=== PATIENT | female | born 1940 | race Caucasian/White ===

== ENCOUNTER → 2018-02-06 07:03 | Outpatient (CLI) | payer OTHER, SELFPAY ==
[2018-02-06 07:07] LABS: Bacteria Urine None Seen; WBC Urine None Seen (0-5/HPF)
[2018-02-06 09:02] LABS: Add Manual Diff / Slide Review NO; Basophils Percent Auto 2.3 % (0-2); Eosinophils Percent Auto 4.9 % (2-4); Hematocrit 42.9 % (36-46); Hemoglobin 14.6 g/dL (12.0-16.0); Mean Corpuscular HGB Conc 33.9 % (30-36); Mean Corpuscular Hemoglobin 31.6 PG (26-34); Mean Corpuscular Volume 93.3 fL (80-100); Monocytes Percent Auto 10.2 % (3-14); Neutrophils Absolute Auto 2000 /uL (3000-5900); Neutrophils Percent Auto 42.6 % (50-75); Platelet Count 318 X10^3/uL (150-400); Red Cell Distribution Width 13.3 % (11.6-14.8); White Blood Cell Count 4.7 X10^3/uL (4.5-11.0)
[2018-02-06 09:15] LABS: Appearance Urine UA CLEAR; Bilirubin Urine UA NEGATIVE (NEGATIVE); Color Urine UA YELLOW; Glucose Urine UA NEGATIVE (Normal); Ketones Urine UA NEGATIVE (NEGATIVE); Leukocyte Esterase Urine UA NEGATIVE (NEGATIVE); Nitrite Urine UA Negative (Negative); Occult Blood Urine UA TRACE-INTACT (Negative); Protein Urine UA NEGATIVE (Negative); Urobilinogen Urine UA 0.2 E.U./dL (0.2); pH Urine UA 6.5 (4.5-8.0)
[2018-02-06 09:29] LABS: Culture Indicated Urine Cult Not Indicated; RBC Urine 1-5/HPF (0-5/HPF)
[2018-02-06 10:06] LABS: Alanine Aminotransferase 24 IU/L (9-52); Albumin 4.6 g/dL (3.5-5.0); Albumin Globulin Ratio 1.5 (1.0-2.8); Alkaline Phosphatase 76 U/L (38-126); Aspartate Aminotransferase 42 IU/L (14-36); Blood Urea Nitrogen 28 mg/dL (7-17); Calcium 9.7 mg/dL (8.4-10.2); Carbon Dioxide 28 mmol/L (22-32); Chloride 104 mmol/L (98-107); Cholesterol 175 mg/dL (140-199); Estimated Glomerular Filt Rate 53.9 mL/min (>60); Glucose 70 mg/dL (80-110); HDL Cholesterol 77 mg/dL (40-60); HEMOLYSIS < 15 (0-50); LDL Cholesterol Calculated 84 mg/dL (<100); Potassium 4.3 mmol/L (3.4-5.1); Sodium 143 mmol/L (137-145); Total Protein 7.6 g/dL (6.3-8.2); Triglycerides 70 mg/dL (35-150)
[2018-02-06 10:17] LABS: Thyroid Stimulating Hormone 2.28 uIU/mL (0.47-4.68)
== END ==
PROVIDERS: Visit Provider Family Medicine
DX: I10 Essential (primary) hypertension (principal); Z13.9 Encounter for screening, unspecified; Z51.81 Encounter for therapeutic drug level monitoring
CPT/HCPCS: 36415; 80053; 80061; 81001; 84443; 85025

== ENCOUNTER → 2018-02-18 13:00 | Outpatient (CLI) | payer OTHER, SELFPAY | DX: Z23 Encounter for immunization (principal) | CPT/HCPCS: 90471; 90662 ==

== ENCOUNTER → 2018-06-17 13:42 | Outpatient (CLI) | payer OTHER, SELFPAY ==
--- NOTE | 2018-06-17 12:15 | DI.MG.S_ITS ---
Patient Name: ANGEL HARMON date: 1940 Sex: F Attending Physician: Maria T Indications: Date: 06/17/2018 13:45 At the request of: BERTA SHAW Procedure: MM screening mammo BI BILATERAL DIGITAL SCREENING MAMMOGRAM 3D/2D WITH CAD: 06/17/2018 CLINICAL: Routine screening. Comparison is made to exams dated: 05/18/2015 mammogram, 02/25/2013 mammogram, and 01/03/2012 mammogram - [facility]. There are scattered fibroglandular elements in both breasts. Current study was also evaluated with a Computer Aided Detection (CAD) system. No significant masses, calcifications, or other findings are seen in either breast. There has been no significant interval change. IMPRESSION: NEGATIVE There is no mammographic evidence of malignancy. A 1 year screening mammogram is recommended. This exam was interpreted at Station ID: [id number]. NOTE: For mammograms, a report in lay terms will be sent to the patient. Approximately 15% of breast malignancies will not be visualized mammographically. In the management of a palpable breast mass, a negative mammogram must not discourage biopsy of a clinically suspicious lesion. Electronically Signed By: Shakir mejía/fab:06/17/2018 21:59:35 letter sent: Normal Exam ACR BI-RADS Category 1: Negative [id number]
== END ==
PROVIDERS: PCP Family Medicine; Visit Provider Family Medicine
DX: Z12.31 Encounter for screening mammogram for malignant neoplasm of breast (principal)
CPT/HCPCS: 77063; 77067

== ENCOUNTER → 2018-08-17 09:58 | Outpatient (CLI) | payer OTHER, SELFPAY | PROVIDERS: PCP Family Medicine; Visit Provider Physician Assistant | DX: R30.0 Dysuria (principal) | CPT/HCPCS: 87086 ==

== ENCOUNTER → 2018-10-25 08:41 | Outpatient (CLI) | payer OTHER, SELFPAY | PROVIDERS: PCP Family Medicine; Visit Provider Physician Assistant | DX: R31.9 Hematuria, unspecified (principal) | CPT/HCPCS: 87086; 87186 ==

== ENCOUNTER → 2019-03-24 12:35 | Outpatient (CLI) | payer OTHER, SELFPAY | PROVIDERS: PCP Family Medicine | DX: Z23 Encounter for immunization (principal) | CPT/HCPCS: 90471; 90662 ==

== ENCOUNTER → 2019-04-21 08:55 | Outpatient (CLI) | payer OTHER, SELFPAY ==
[2019-04-21 09:36] LABS: Add Manual Diff / Slide Review NO; Basophils Absolute Auto 100 /uL (0-100); Basophils Percent Auto 1.4 % (0-2); Eosinophils Absolute Auto 200 /uL (0-450); Eosinophils Percent Auto 4.7 % (2-4); Hematocrit 42.4 % (36-46); Hemoglobin 14.5 g/dL (12.0-16.0); Lymphocytes Absolute Auto 1700 /uL (1100-4500); Lymphocytes Percent Auto 31.9 % (25-40); Mean Corpuscular HGB Conc 34.2 % (30-36); Mean Corpuscular Hemoglobin 31.4 PG (26-34); Mean Corpuscular Volume 91.6 fL (80-100); Monocytes Absolute Auto 500 /uL (0-900); Monocytes Percent Auto 10.2 % (3-14); Neutrophils Absolute Auto 2700 /uL (1500-7000); Neutrophils Percent Auto 51.8 % (50-75); Platelet Count 318 X10^3/uL (150-400); Red Blood Cell Count 4.63 X10^6/uL (4.0-5.2); Red Cell Distribution Width 13.4 % (11.6-14.8); White Blood Cell Count 5.2 X10^3/uL (4.5-11.0)
[2019-04-21 09:53] LABS: Alanine Aminotransferase 17 IU/L (<35); Albumin 4.6 g/dL (3.5-5.0); Albumin Globulin Ratio 1.6 (1.0-2.8); Alkaline Phosphatase 88 U/L (38-126); Aspartate Aminotransferase 33 IU/L (14-36); BUN Creatinine Ratio 17.5 (6-22); Bilirubin Total 0.8 mg/dL (0.2-1.3); Blood Urea Nitrogen 21 mg/dL (7-17); Calcium 9.6 mg/dL (8.4-10.2); Carbon Dioxide 30 mmol/L (22-32); Chloride 100 mmol/L (98-107); Cholesterol 203 mg/dL (140-199); Estimated Glomerular Filt Rate 43.6 mL/min (>60); Globulin 2.8 g/dL (1.7-4.1); Glucose 97 mg/dL (80-110); HDL Cholesterol 68 mg/dL (40-60); HEMOLYSIS < 15 (0-50); LDL Cholesterol Calculated 114 mg/dL (<100); Potassium 4.1 mmol/L (3.4-5.1); Sodium 138 mmol/L (137-145); Total Protein 7.4 g/dL (6.3-8.2); Triglycerides 107 mg/dL (35-150)
[2019-04-21 10:33] LABS: Thyroid Stimulating Hormone 3.54 uIU/mL (0.47-4.68)
== END ==
PROVIDERS: PCP Family Medicine; Visit Provider Family Medicine
DX: Z51.81 Encounter for therapeutic drug level monitoring (principal); I10 Essential (primary) hypertension; M19.90 Unspecified osteoarthritis, unspecified site
CPT/HCPCS: 36415; 80053; 80061; 84443; 85025

== ENCOUNTER → 2019-08-18 13:25 | Outpatient (CLI) | payer OTHER, SELFPAY | PROVIDERS: PCP Student in an Organized Health Care Education/Training Program; Referring Provider Student in an Organized Health Care Education/Training Program; Visit Provider Student in an Organized Health Care Education/Training Program | DX: M81.0 Age-related osteoporosis without current pathological fracture (principal); Z78.0 Asymptomatic menopausal state; Z91.89 Other specified personal risk factors, not elsewhere classified; Z90.722 Acquired absence of ovaries, bilateral; Z82.62 Family history of osteoporosis | CPT/HCPCS: 77080 ==

== ENCOUNTER → 2020-08-03 14:56 | Outpatient (CLI) | payer OTHER, SELFPAY ==
[2020-08-03 16:53] LABS: BUN Creatinine Ratio 24.8 (6-22); Blood Urea Nitrogen 27 mg/dL (7-17); Calcium 9.5 mg/dL (8.4-10.2); Carbon Dioxide 29 mmol/L (22-32); Chloride 104 mmol/L (98-107); Estimated Glomerular Filt Rate 48.4 mL/min (>60); Glucose 95 mg/dL (80-110); HEMOLYSIS < 15 (0-50); Potassium 4.4 mmol/L (3.4-5.1); Sodium 137 mmol/L (137-145)
[2020-08-03 17:50] LABS: Vitamin D 25 Hydroxy (D3) 70.7 ng/mL (30.0-100.0)
== END ==
PROVIDERS: PCP Student in an Organized Health Care Education/Training Program; Referring Provider Student in an Organized Health Care Education/Training Program; Visit Provider Student in an Organized Health Care Education/Training Program
DX: M85.80 Other specified disorders of bone density and structure, unspecified site (principal); I10 Essential (primary) hypertension
CPT/HCPCS: 36415; 80048; 82306

== ENCOUNTER → 2021-08-10 11:26 | Outpatient (CLI) | payer OTHER, SELFPAY ==
[2021-08-10 13:17] LABS: BUN Creatinine Ratio 20.6 (6-22); Blood Urea Nitrogen 21 mg/dL (7-17); Calcium 9.1 mg/dL (8.4-10.2); Carbon Dioxide 31 mmol/L (22-32); Chloride 102 mmol/L (98-107); Estimated Glomerular Filt Rate 52.1 mL/min (>60); Glucose 94 mg/dL (80-110); HEMOLYSIS < 15 (0-50); Potassium 4.2 mmol/L (3.4-5.1); Sodium 135 mmol/L (137-145)
== END ==
PROVIDERS: PCP Student in an Organized Health Care Education/Training Program; Referring Provider Student in an Organized Health Care Education/Training Program; Visit Provider Student in an Organized Health Care Education/Training Program
DX: I10 Essential (primary) hypertension (principal); M81.0 Age-related osteoporosis without current pathological fracture
CPT/HCPCS: 36415; 80048

== ENCOUNTER → 2021-08-24 14:57 | Outpatient (CLI) | payer OTHER, SELFPAY | PROVIDERS: PCP Student in an Organized Health Care Education/Training Program; Referring Provider Student in an Organized Health Care Education/Training Program; Visit Provider Student in an Organized Health Care Education/Training Program | DX: M81.0 Age-related osteoporosis without current pathological fracture (principal); Z78.0 Asymptomatic menopausal state | CPT/HCPCS: 77080 ==

== ENCOUNTER → 2022-08-14 14:34 | Outpatient (CLI) | payer OTHER, SELFPAY ==
[2022-08-14 15:36] LABS: HEMOLYSIS < 15 (0-50); Potassium 4.5 mmol/L (3.4-5.1)
[2022-08-14 15:37] LABS: BUN Creatinine Ratio 19.6 (6-22); Blood Urea Nitrogen 20 mg/dL (7-17); Calcium 9.4 mg/dL (8.4-10.2); Carbon Dioxide 31 mmol/L (22-32); Chloride 99 mmol/L (98-107); Estimated Glomerular Filt Rate 55 mL/min (>60); Glucose 87 mg/dL (80-110); Sodium 138 mmol/L (137-145)
== END ==
PROVIDERS: PCP Student in an Organized Health Care Education/Training Program; Referring Provider Student in an Organized Health Care Education/Training Program; Visit Provider Student in an Organized Health Care Education/Training Program
DX: I10 Essential (primary) hypertension (principal)
CPT/HCPCS: 36415; 80048

== ENCOUNTER → 2024-02-07 09:52 | Outpatient (CLI) | payer OTHER, SELFPAY ==
[2024-02-07 12:41] LABS: COVID-19 CEPHEID 4-PLEX PCR Negative (Negative); Influenza A - CEPHEID Flu A NEGATIVE (NEGATIVE); Influenza B - CEPHEID Flu B NEGATIVE (NEGATIVE); Respiratory Syncytial Virus Negative (Negative)
== END ==
PROVIDERS: PCP Family Medicine; Visit Provider Nurse Practitioner Family
DX: R05.8 Other specified cough (principal)
CPT/HCPCS: 0241U

== ENCOUNTER → 2024-07-29 08:03 | Outpatient (CLI) | payer OTHER, SELFPAY ==
[2024-07-29 08:51] LABS: Add Manual Diff / Slide Review NO; Basophils Absolute Auto 100 /uL (0-100); Basophils Percent Auto 1.9 % (0-2); Eosinophils Absolute Auto 200 /uL (0-450); Eosinophils Percent Auto 4.5 % (2-4); Lymphocytes Absolute Auto 1400 /uL (1100-4500); Lymphocytes Percent Auto 31.1 % (25-40); Mean Corpuscular HGB Conc 33.3 % (30-36); Mean Corpuscular Hemoglobin 31.1 PG (26-34); Mean Corpuscular Volume 93.2 fL (80-100); Monocytes Absolute Auto 500 /uL (0-900); Monocytes Percent Auto 10.9 % (3-14); Neutrophils Absolute Auto 2300 /uL (1500-7000); Neutrophils Percent Auto 51.6 % (50-75); Platelet Count 292 X10^3/uL (150-400); Red Blood Cell Count 4.51 X10^6/uL (4.0-5.2); Red Cell Distribution Width 13.7 % (11.6-14.8); White Blood Cell Count 4.5 X10^3/uL (4.5-11.0)
[2024-07-29 09:13] LABS: Alanine Aminotransferase 21 IU/L (<35); Albumin 4.1 g/dL (3.5-5.0); Albumin Globulin Ratio 1.7 (1.0-2.8); Alkaline Phosphatase 75 U/L (38-126); Aspartate Aminotransferase 33 IU/L (14-36); BUN Creatinine Ratio 20.6 (6-22); Bilirubin Total 0.6 mg/dL (0.2-1.3); Blood Urea Nitrogen 22 mg/dL (7-17); Calcium 9.4 mg/dL (8.4-10.2); Carbon Dioxide 28 mmol/L (22-32); Chloride 103 mmol/L (98-107); Cholesterol 194 mg/dL (140-199); Estimated Glomerular Filt Rate 52 mL/min (>60); Globulin 2.4 g/dL (1.7-4.1); Glucose 79 mg/dL (80-110); HDL Cholesterol 87 mg/dL (40-60); HEMOLYSIS < 15 (0-50); LDL Cholesterol Calculated 93 mg/dL (<100); Potassium 4.3 mmol/L (3.4-5.1); Sodium 136 mmol/L (137-145); Total Protein 6.5 g/dL (6.3-8.2); Triglycerides 72 mg/dL (35-150)
== END ==
PROVIDERS: PCP Family Medicine; Referring Provider Family Medicine; Visit Provider Family Medicine
DX: N18.31 Chronic kidney disease, stage 3a (principal); M81.0 Age-related osteoporosis without current pathological fracture
CPT/HCPCS: 36415; 80053; 80061; 85025

== ENCOUNTER 2024-08-01 22:13 | Emergency (ER) | payer OTHER, SELFPAY ==
[2024-08-01] VITALS (9 sets, daily range): BP systolic 118–160; BP diastolic 59–74; PULSE 48–92; RESP 9–20; TEMP 36.5; O2SAT 94–100; BMI 25.7
--- NOTE | 2024-08-01 22:17 | EKG_ITS ---
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
--- NOTE | 2024-08-01 22:17 | DI.RAD.S_ITS ---
PROCEDURE: XR CHEST 1V INDICATIONS: chest pain TECHNIQUE: One view of the chest was acquired. COMPARISON: None. FINDINGS: Surgical changes and devices: None. Lungs and pleura: Lungs are clear. No pleural effusions or pneumothorax. Mediastinum: Mediastinal contours appear normal. Heart size is normal. Bones and chest wall: No suspicious bony lesions. Overlying soft tissues appear unremarkable. IMPRESSION: No acute cardiopulmonary abnormality is seen. Approved by: Jolynn Ruiz M.D.,Ph.D. on 08/01/2024 at 23:23
--- NOTE | 2024-08-01 22:27 | ED.ARRPALP ---
HPI - Arrhythmia/Palpitations General Chief Complaint: Arrhythmia/Palpitations Stated Complaint: AFIB RVR Time Seen by Provider: 08/01/24 22:27 Source: patient and EMS Mode of arrival: EMS History of Present Illness HPI narrative: 84-year-old female with a past medical history of hypertension CKD presents from home via EMS for evaluation palpitation, according to EMS patient was in rapid AFib did give 20 mg IV Cardizem prior to arrival with improvement of patient's symptoms. At time of initial evaluation patient in atrial fibrillation rate controlled in the 80s. She has not complaining of any chest pain shortness breath but is still planning of intermittent palpitations. She states that the symptoms started when she woke up. States that she has no known history of atrial fibrillation. She denies any other symptoms such as headache visual disturbances chest pain shortness breath fever chills nausea vomiting abdominal pain or any other GI/ symptoms time. Related Data Home Medications Medication Instructions Recorded Confirmed Fish Oil (#FISH OIL) 1,200 mg PO Q DAY ##0 10/25/10 06/24/24 [GLUCOSAMINE & CHONDR] ##0 10/25/10 06/24/24 magnesium 30 mg tablet 30 mg PO DAILY 09/23/18 06/24/24 Lactobacillus acidophilus 100 300 mg PO DAILY 08/06/19 06/24/24 million cell capsule [MELATONIN] 10 mg PO HS ##0 08/03/20 06/24/24 cholecalciferol (vitamin D3) 100 100 mcg PO DAILY 08/03/20 06/24/24 mcg (4,000 unit) capsule turmeric 7 g PO 08/03/20 06/24/24 zinc acetate 25 mg (zinc) capsule 25 mg PO DAILY 08/03/20 06/24/24 (Galzin) ascorbic acid (vitamin C) 1,000 mg 1 g PO Q6H 05/29/23 06/24/24 capsule vinia PO 05/29/23 06/24/24 Previous Rx's Medication Instructions Recorded dicyclomine 10 mg capsule 10 mg PO TID PRN GI Issues #90 caps 08/10/21 amitriptyline 50 mg tablet 50 mg PO HS #90 tabs 07/03/24 metoprolol succinate 50 mg 50 mg PO DAILY #90 tabs 07/03/24 tablet,extended release 24 hr apixaban 5 mg tablet (Eliquis) 5 mg PO BID 1 month #60 tabs 08/02/24 Allergies Allergy/AdvReac Type Severity Reaction Status Date / Time lactose [LACTOSE] Allergy Unknown Verified 08/01/24 22:21 mold [MOLD] Allergy Unknown Verified 08/01/24 22:21 Review of Systems Review of Systems Narrative: General: Denies fever, chills, weight loss HEENT: Denies headache, eye drainage, eye irritation, head trauma, sore throat, voice change Cardiovascular: Positive palpitations, Denies any chest pain, shortness of breath, tachycardia Respiratory: Denies any shortness of breath, cough, wheeze, stridor GI/: Denies any abdominal pain, nausea, vomiting, diarrhea, bright red blood per rectum, melanotic stools, urinary frequency, urinary retention, dysuria, hematuria MSK: Denies any joint pain, muscle pains, swelling Skin: Denies any rashes, lesions, discoloration Neuro: Denies any headache, lightheadedness, dizziness, fainting, weakness Psych: Denies SI/HI Patient History Medical History (Updated 08/01/24 @ 22:42 by Oemro Mancilla DO) Lumbar stenosis Chickenpox Measles Mumps Rubella IBS (irritable bowel syndrome) History of seizure (1996) Anxiety Actinic keratosis Basal cell carcinoma Insomnia Osteoporosis (~2008) Rheumatic fever Osteopenia Arthritis Allergic rhinitis Hypertension Surgical History History of back surgery (1986) Hx of Moh's micrographic surgery for skin cancer Hx of appendectomy (1947) Hx of hysterectomy (1979) Hx of tonsillectomy (1949) Family History (Updated 02/26/18 @ 10:27 by Valarie Robertson LPN) Father Alcoholic Stroke Mother Hypertension Cancer Social History Smoking Status: Never smoker Smoking Status: Never smoker Exam Narrative Exam Narrative: General: Cooperative, comfortable, well-developed, not in acute distress HEENT: Normocephalic, atraumatic, PERRLA, normal sclera, eyelids normal, Neck: Active full range of motion, atraumatic Chest: Normal to inspection, negative crepitus, no overlying erythema ecchymosis Respiratory: Normal respiratory effort, not in acute respiratory distress, clear to auscultation bilaterally negative cough, wheeze, tachypnea, rhonchi, rales Cardiology: Irregularly irregular, negative gallop, murmur, rubs GI/: Normal to inspection, soft, nonrigid, no tenderness to palpation, exam deferred MSK: Full range of active range of motion of all 4 extremities, atraumatic Skin: No rashes lesions noted Neuro: Alert awake oriented x3, moves all 4 extremities spontaneously, cranial nerves intact, able to answer all questions appropriately follows commands appropriately Psych: Cooperative, negative suicidal or homicidal ideations Initial Vital Signs Initial Vital Signs: Vital Signs Pulse Rate 90 08/01/24 22:16 Respiratory Rate 20 08/01/24 22:16 Course Orders Ordered: ED Orders 08/01/24 22:17 XR chest 1V Stat EKG-12 Lead Stat 08/01/24 22:32 Complete Blood Count AUTO DIFF Stat Comprehensive Metabolic Panel Stat Lipase Stat Magnesium Stat NT-proBNP (BNP-Adult 18+) Stat PTT Partial Thromboplastin Martínez Stat Prothrombin Time INR Stat TSH [Thyroid Stimulating Hormone] Stat Troponin & CK Cardiac Panel Stat 08/01/24 22:54 EKG-12 Lead Stat Discontinued Medications Apixaban (Apixaban 5 Mg Tablet) 5 mg PO NOW ONE Stop: 08/01/24 22:35 Last Admin: 08/01/24 22:45 Dose: 5 mg Documented By: MARICHUY Magnesium Sulfate (Magnesium Sulfate) 2 gm in 50 mls @ 25 mls/hr IV NOW ONE Stop: 08/02/24 00:30 Last Admin: 08/01/24 22:43 Dose: 25 mls/hr Documented By: MARICHUY Co-signed By: Metoprolol Succinate (Metoprolol Er 25 Mg Tablet) 25 mg PO NOW ONE Stop: 08/01/24 22:33 Last Admin: 08/01/24 23:01 Dose: Not Given Documented By: MARICHUY Vital Signs Vital signs: Vital Signs - 8 hr 08/01/24 22:16 08/01/24 22:18 08/01/24 22:21 Temperature 97.7 F Pulse Rate 90 92 H 86 Respiratory Rate 20 13 18 Blood Pressure 156/74 H 156/74 H Pulse Oximetry 100 99 Oxygen Delivery Method Room Air 08/01/24 22:30 08/01/24 22:52 08/01/24 22:52 Temperature Pulse Rate 58 L 52 L Respiratory Rate 11 L 16 Blood Pressure 127/60 Pulse Oximetry 98 94 Oxygen Delivery Method 08/01/24 23:00 08/01/24 23:00 08/01/24 23:22 Temperature Pulse Rate 51 L 51 L Respiratory Rate 15 11 L Blood Pressure 124/61 Pulse Oximetry 95 98 Oxygen Delivery Method 08/01/24 23:22 08/01/24 23:30 08/01/24 23:31 Temperature Pulse Rate 48 L Respiratory Rate 9 L Blood Pressure 160/65 H 118/59 L Pulse Oximetry 96 Oxygen Delivery Method 08/01/24 23:31 Temperature Pulse Rate 50 L Respiratory Rate 16 Blood Pressure Pulse Oximetry 94 Oxygen Delivery Method MDM - Arrhythmia/Palpitations Differential Diagnosis Differential diagnosis: Likely palpitations, artial fibrillation, artial flutter, supraventricular tachycardia and other (Electrolyte abnormality, ACS, pneumonia) Lab Data 08/01/24 22:32 08/01/24 22:32 Labs: Lab Results 08/01/24 Range/Units 22:32 WBC 6.8 (4.5-11.0) X10^3/uL RBC 4.63 (4.0-5.2) X10^6/uL Hgb 14.4 (12.0-16.0) g/dL Hct 43.2 (36-46) % MCV 93.4 (80-100) fL MCH 31.1 (26-34) PG MCHC 33.3 (30-36) % RDW 14.3 (11.6-14.8) % Plt Count 275 (150-400) X10^3/uL Neut % (Auto) 39.5 L (50-75) % Lymph % (Auto) 42.7 H (25-40) % [place] % (Auto) 11.9 (3-14) % Eos % (Auto) 4.6 H (2-4) % Baso % (Auto) 1.3 (0-2) % Neut # (Auto) 2700 (3791-7457) /uL Lymph # (Auto) 2900 (4083-7613) /uL [place] # (Auto) 800 (0-900) /uL Eos # (Auto) 300 (0-450) /uL Baso # (Auto) 100 (0-100) /uL PT 9.8 (9.4-12.5) SECONDS INR 0.9 (0.9-1.3) APTT 36 (25.1-36.5) SECONDS Sodium 139 (137-145) mmol/L Potassium 3.8 (3.4-5.1) mmol/L Chloride 105 (98-107) mmol/L Carbon Dioxide 24 (22-32) mmol/L BUN 27 H (7-17) mg/dL Creatinine 1.09 H (0.52-1.04) mg/dL Estimated GFR 50 L (>60) mL/min BUN/Creatinine Ratio 24.8 H (6-22) Glucose 163 H (80-110) mg/dL Calcium 9.6 (8.4-10.2) mg/dL Magnesium 2.1 (1.6-2.3) mg/dL Total Bilirubin 0.4 (0.2-1.3) mg/dL AST 41 H (14-36) IU/L ALT 25 (<35) IU/L Alkaline Phosphatase 114 (38-126) U/L Total Creatine Kinase 69 (30-135) U/L Troponin I < 0.012 (0.01-0.034) ng/mL NT-Pro-B Natriuret Pep 397 (<450) pg/mL Total Protein 7.3 (6.3-8.2) g/dL Albumin 4.4 (3.5-5.0) g/dL Globulin 2.9 (1.7-4.1) g/dL Albumin/Globulin Ratio 1.5 (1.0-2.8) Lipase 210 (23-300) U/L TSH 4.46 (0.47-4.68) uIU/mL ECG Data Interpretation: EKG interpreted ED physician atrial fibrillation 85 beats per minute QTC [address] changes no STEMI Repeat EKG performed sinus bradycardia at 52 beats per minute QTC [address] changes no STEMI MDM Narrative Medical decision making narrative: 84-year-old female past medical history of hypertension presents from home via EMS for new onset atrial fibrillation, according to medics patient was in rapid AFib did receive 20 mg IV Cardizem. Patient states that she woke up feeling ?weird with palpitations in her chest but no chest pain shortness of breath. States that she checked her blood pressure was elevated which is the reason why she called medics. At time of initial evaluation patient in atrial fibrillation but rate controlled in the 80s. Patient EKG nonischemic in nature lab work imaging performed here. Patient was also given 2 g magnesium, patient states that she already took her 50 mg of metoprolol at around 9:00 p.m. Patient with a CHADS-VASc score of 4, did discuss risks benefits to starting patient on anticoagulation she understands and agrees with this plan therefore patient will be started on Eliquis. 2.23.25 @ 0041: Patient re-evaluated no new complaints at this time, patient on monitor is now sinus bradycardic, patient not complaining of any chest pain shortness of breath palpitations states that she is feeling well, patient has bradycardia is at high 50s most likely secondary to patient's medication. Patient without any leukocytosis chest x-ray without any acute cardiopulmonary abnormalities troponin negative Chem panel otherwise unremarkable she was instructed follow up with primary care and Cardiology in outpatient setting informed to continue her beta-colin for rate control for her paroxysmal AFib. Patient was given strict return precautions agrees with being discharged home with outpatient follow up Discharge Plan Departure Patient Disposition: Home Clinical Impression: New onset a-fib Instructions: DI for Atrial Fibrillation Activity Restrictions/Additional Instructions: Please follow up with Cardiology Please go to the following link to get a free/discounted course of eliquis: [email or web address] Please read the discharge instructions sheet carefully and bring all papers to all doctor follow-up visits, as it may contain information that your doctor may want to see. Disease processes change and evolve, if your symptoms worsen or if you develop any new symptoms that are concerning to you please return for evaluation. Your evaluation today does not show any evidence of any life-threatening/serious illnesses requiring admission to the hospital or surgery. Please follow-up with your doctor for re-evaluation in approximately 1 day. Seek immediate medical attention for any worrisome symptoms. *If you do not have a primary care provider please contact the [facility] Resource line at [phone]. They will ask some questions about your medical history and help get you set up with a doctor in the community. Prescriptions: New Eliquis 5 mg tablet 5 mg PO BID 30 Days Qty: 60 0RF No Action magnesium 30 mg tablet 30 mg PO DAILY [GLUCOSAMINE & CHONDR] Qty: 0 Fish Oil (#FISH OIL) 1,200 mg PO Q DAY Qty: 0 [MELATONIN] 10 mg PO HS Qty: 0 metoprolol succinate 50 mg tablet extended release 24 hr 50 mg PO DAILY Qty: 90 1RF amitriptyline 50 mg tablet 50 mg PO HS MDD 50mg Qty: 90 1RF Rx Instructions: Take one tablet bby mouth at bedtime Lactobacillus acidophilus 100 million cell capsule 300 mg PO DAILY Galzin 25 mg (zinc) capsule 25 mg PO DAILY Rx Instructions: swallow whole; do not chew/break/dissolve/open turmeric 7 g PO cholecalciferol (vitamin D3) 100 mcg (4,000 unit) capsule 100 mcg PO DAILY dicyclomine 10 mg capsule 10 mg PO TID PRN (Reason: GI Issues) Qty: 90 11RF ascorbic acid (vitamin C) 1,000 mg capsule 1 g PO Q6H vinia PO Referrals: Eliana Flower MD [Physician] - As soon as possible Opal Rios DO [Primary Care Provider] - Stand Alone Forms: Patient Portal/API/Survey
[2024-08-01 22:41] LABS: Add Manual Diff / Slide Review NO; Basophils Absolute Auto 100 /uL (0-100); Basophils Percent Auto 1.3 % (0-2); Eosinophils Absolute Auto 300 /uL (0-450); Eosinophils Percent Auto 4.6 % (2-4); Hematocrit 43.2 % (36-46); Hemoglobin 14.4 g/dL (12.0-16.0); Lymphocytes Absolute Auto 2900 /uL (1100-4500); Lymphocytes Percent Auto 42.7 % (25-40); Mean Corpuscular HGB Conc 33.3 % (30-36); Mean Corpuscular Hemoglobin 31.1 PG (26-34); Mean Corpuscular Volume 93.4 fL (80-100); Monocytes Absolute Auto 800 /uL (0-900); Monocytes Percent Auto 11.9 % (3-14); Neutrophils Absolute Auto 2700 /uL (1500-7000); Neutrophils Percent Auto 39.5 % (50-75); Platelet Count 275 X10^3/uL (150-400); Red Blood Cell Count 4.63 X10^6/uL (4.0-5.2); Red Cell Distribution Width 14.3 % (11.6-14.8); White Blood Cell Count 6.8 X10^3/uL (4.5-11.0)
[2024-08-01] MEDS: MAGNESIUM SULFATE 2 GM/50 ML PIGGYBACK IV (22:43)
[2024-08-01] MEDS: APIXABAN 5 MG TABLET PO (22:45)
[2024-08-01 22:47] LABS: INR 0.9 (0.9-1.3); Prothrombin Time 9.8 SECONDS (9.4-12.5)
[2024-08-01 22:50] LABS: PTT Partial Thromboplastin Tim 36 SECONDS (25.1-36.5)
[2024-08-01 22:51] LABS: Alanine Aminotransferase 25 IU/L (<35); Albumin 4.4 g/dL (3.5-5.0); Albumin Globulin Ratio 1.5 (1.0-2.8); Alkaline Phosphatase 114 U/L (38-126); Aspartate Aminotransferase 41 IU/L (14-36); BUN Creatinine Ratio 24.8 (6-22); Bilirubin Total 0.4 mg/dL (0.2-1.3); Blood Urea Nitrogen 27 mg/dL (7-17); Calcium 9.6 mg/dL (8.4-10.2); Carbon Dioxide 24 mmol/L (22-32); Chloride 105 mmol/L (98-107); Creatine Kinase 69 U/L (30-135); Estimated Glomerular Filt Rate 50 mL/min (>60); Globulin 2.9 g/dL (1.7-4.1); Glucose 163 mg/dL (80-110); HEMOLYSIS 39 (0-50); Lipase 210 U/L (23-300); Magnesium 2.1 mg/dL (1.6-2.3); Potassium 3.8 mmol/L (3.4-5.1); Sodium 139 mmol/L (137-145); Total Protein 7.3 g/dL (6.3-8.2)
--- NOTE | 2024-08-01 22:57 | EKG_ITS ---
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
[2024-08-01 23:02] LABS: NT-proBNP (BNP-Adult 18+) 397 pg/mL (<450); Troponin I < 0.012 ng/mL (0.01-0.034)
[2024-08-01 23:39] LABS: Thyroid Stimulating Hormone 4.46 uIU/mL (0.47-4.68)
[2024-08-02] VITALS: BP 110/54; PULSE 50; RESP 21; O2SAT 95
[2024-08-02 00:30] VITALS: BP 118/59; PULSE 50; RESP 14; O2SAT 95
[2024-08-02 01:23] VITALS: BP 131/61; PULSE 60; RESP 16; O2SAT 97
== END 2024-08-02 01:23 | disposition home or self-care (01) ==
PROVIDERS: Emergency Provider Student in an Organized Health Care Education/Training Program; PCP Family Medicine
DX: I48.91 Unspecified atrial fibrillation (principal); R00.1 Bradycardia, unspecified; I12.9 Hypertensive chronic kidney disease with stage 1 through stage 4 chronic kidney disease, or unspecified chronic kidney disease; N18.9 Chronic kidney disease, unspecified
CPT/HCPCS: 36415; 71045; 80053; 82550; 83690; 83735; 83880; 84443; 84484; 85025; 85610; 85730; 93005; 93010; 96365; 96366; 99284; J3475

== ENCOUNTER 2024-08-04 21:11 | Emergency (ER) | payer OTHER, SELFPAY ==
[2024-08-04] VITALS (10 sets, daily range): BP systolic 120–160; BP diastolic 55–76; PULSE 49–105; RESP 15–21; TEMP 36.4; O2SAT 96–100; BMI 25.6
--- NOTE | 2024-08-04 21:16 | DI.RAD.S_ITS ---
PROCEDURE: XR CHEST 1V INDICATIONS: chest pain TECHNIQUE: One view of the chest was acquired. COMPARISON: [facility], CR, XR CHEST 1V, 08/01/2024, 22:20. FINDINGS: Surgical changes and devices: None. Lungs and pleura: Lungs are clear. Elevation of the right hemidiaphragm. No pleural effusions or pneumothorax. Mediastinum: Mediastinal contours appear normal. Heart size is normal. Bones and chest wall: No suspicious bony lesions. Overlying soft tissues appear unremarkable. IMPRESSION: No acute cardiopulmonary abnormality is seen. Dictated by: Colten Louis M.D. on 08/04/2024 at 21:29 Approved by: Colten Louis M.D. on 08/04/2024 at 21:29
--- NOTE | 2024-08-04 21:24 | EKG_ITS ---
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
[2024-08-04 21:29] LABS: Add Manual Diff / Slide Review NO; Basophils Absolute Auto 100 /uL (0-100); Basophils Percent Auto 0.9 % (0-2); Eosinophils Absolute Auto 300 /uL (0-450); Eosinophils Percent Auto 3.1 % (2-4); Hematocrit 46.6 % (36-46); Hemoglobin 15.6 g/dL (12.0-16.0); Lymphocytes Absolute Auto 3200 /uL (1100-4500); Lymphocytes Percent Auto 39.5 % (25-40); Mean Corpuscular HGB Conc 33.4 % (30-36); Mean Corpuscular Hemoglobin 31.3 PG (26-34); Mean Corpuscular Volume 93.7 fL (80-100); Monocytes Absolute Auto 900 /uL (0-900); Monocytes Percent Auto 10.6 % (3-14); Neutrophils Absolute Auto 3700 /uL (1500-7000); Neutrophils Percent Auto 45.9 % (50-75); Platelet Count 310 X10^3/uL (150-400); Red Blood Cell Count 4.98 X10^6/uL (4.0-5.2); Red Cell Distribution Width 13.8 % (11.6-14.8); White Blood Cell Count 8.1 X10^3/uL (4.5-11.0)
[2024-08-04 21:38] LABS: INR 1.1 (0.9-1.3); Prothrombin Time 12.1 SECONDS (9.4-12.5)
[2024-08-04 21:40] LABS: PTT Partial Thromboplastin Tim 48 SECONDS (25.1-36.5)
[2024-08-04 21:42] LABS: Alanine Aminotransferase 27 IU/L (<35); Albumin Globulin Ratio 1.4 (1.0-2.8); Alkaline Phosphatase 124 U/L (38-126); Aspartate Aminotransferase 45 IU/L (14-36); Bilirubin Total 0.4 mg/dL (0.2-1.3); Blood Urea Nitrogen 22 mg/dL (7-17); Carbon Dioxide 29 mmol/L (22-32); Chloride 100 mmol/L (98-107); Creatine Kinase 75 U/L (30-135); Estimated Glomerular Filt Rate 53 mL/min (>60); Globulin 3.7 g/dL (1.7-4.1); Glucose 139 mg/dL (80-110); HEMOLYSIS 37 (0-50); Lipase 202 U/L (23-300); Magnesium 2.2 mg/dL (1.6-2.3); Potassium 3.6 mmol/L (3.4-5.1); Sodium 139 mmol/L (137-145); Total Protein 8.7 g/dL (6.3-8.2)
[2024-08-04 21:53] LABS: NT-proBNP (BNP-Adult 18+) 513 pg/mL (<450); Troponin I 0.018 ng/mL (0.01-0.034)
[2024-08-04] MEDS: MAGNESIUM SULFATE 2 GM/50 ML PIGGYBACK IV (22:03)
--- NOTE | 2024-08-04 23:38 | ED_ITS ---
HPI - Arrhythmia/Palpitations General Chief Complaint: Arrhythmia/Palpitations Stated Complaint: A-fib Time Seen by Provider: 08/04/24 23:38 Source: patient and EMS Mode of arrival: EMS History of Present Illness HPI narrative: 84-year-old female with a past medical history of AFib on Eliquis, newly diagnosed AFib by me here in the emergency department. Patient states that she was at home just like before started feeling palpitations called the EMS and was noted to be in rapid AFib, according to medics they did give 20 mg of IV Cardizem prior to arrival with improvement in symptoms. Patient states she has already called her primary care doctor and has an appointment with permit specialist but it is in the next week. She is completely asymptomatic at the time. She denies any other symptoms such as headache visual disturbances chest pain shortness breath fever chills nausea vomiting abdominal pain or any other GI/ symptoms. Related Data Home Medications Medication Instructions Recorded Confirmed Fish Oil (#FISH OIL) 1,200 mg PO Q DAY ##0 10/25/10 06/24/24 [GLUCOSAMINE & CHONDR] ##0 10/25/10 06/24/24 magnesium 30 mg tablet 30 mg PO DAILY 09/23/18 06/24/24 Lactobacillus acidophilus 100 300 mg PO DAILY 08/06/19 06/24/24 million cell capsule [MELATONIN] 10 mg PO HS ##0 08/03/20 06/24/24 cholecalciferol (vitamin D3) 100 100 mcg PO DAILY 08/03/20 06/24/24 mcg (4,000 unit) capsule turmeric 7 g PO 08/03/20 06/24/24 zinc acetate 25 mg (zinc) capsule 25 mg PO DAILY 08/03/20 06/24/24 (Galzin) ascorbic acid (vitamin C) 1,000 mg 1 g PO Q6H 05/29/23 06/24/24 capsule vinia PO 05/29/23 06/24/24 Previous Rx's Medication Instructions Recorded dicyclomine 10 mg capsule 10 mg PO TID PRN GI Issues #90 caps 08/10/21 amitriptyline 50 mg tablet 50 mg PO HS #90 tabs 07/03/24 metoprolol succinate 50 mg 50 mg PO DAILY #90 tabs 07/03/24 tablet,extended release 24 hr apixaban 5 mg tablet (Eliquis) 5 mg PO BID 1 month #60 tabs 08/02/24 lorazepam 0.5 mg tablet (Ativan) 0.5 mg PO DAILY PRN anxiety 1 week 08/04/24 #7 tabs Allergies Allergy/AdvReac Type Severity Reaction Status Date / Time lactose [LACTOSE] Allergy Unknown Verified 08/01/24 22:21 mold [MOLD] Allergy Unknown Verified 08/01/24 22:21 Review of Systems Review of Systems Narrative: General: Denies fever, chills, weight loss HEENT: Denies headache, eye drainage, eye irritation, head trauma, sore throat, voice change Cardiovascular: Positive palpitations Denies any chest pain, shortness of breath, tachycardia Respiratory: Denies any shortness of breath, cough, wheeze, stridor GI/: Denies any abdominal pain, nausea, vomiting, diarrhea, bright red blood per rectum, melanotic stools, urinary frequency, urinary retention, dysuria, hematuria MSK: Denies any joint pain, muscle pains, swelling Skin: Denies any rashes, lesions, discoloration Neuro: Denies any headache, lightheadedness, dizziness, fainting, weakness Psych: Denies SI/HI Patient History Medical History (Updated 08/04/24 @ 23:43 by Omero Mancilla DO) Lumbar stenosis Chickenpox Measles Mumps Rubella IBS (irritable bowel syndrome) History of seizure (1996) Anxiety Actinic keratosis Basal cell carcinoma Insomnia Osteoporosis (~2008) Rheumatic fever Osteopenia Arthritis Allergic rhinitis Hypertension Surgical History History of back surgery (1986) Hx of Moh's micrographic surgery for skin cancer Hx of appendectomy (1947) Hx of hysterectomy (1979) Hx of tonsillectomy (1949) Family History (Updated 02/26/18 @ 10:27 by Valarie Robertson LPN) Father Alcoholic Stroke Mother Hypertension Cancer Social History Smoking Status: Never smoker Smoking Status: Never smoker Exam Narrative Exam Narrative: General: Cooperative, comfortable, well-developed, not in acute distress HEENT: Normocephalic, atraumatic, PERRLA, normal sclera, eyelids normal, Neck: Active full range of motion, atraumatic Chest: Normal to inspection, negative crepitus, no overlying erythema ecchymosis Respiratory: Normal respiratory effort, not in acute respiratory distress, clear to auscultation bilaterally negative cough, wheeze, tachypnea, rhonchi, rales Cardiology: Regular rate rhythm negative gallop, murmur, rubs GI/: Normal to inspection, soft, nonrigid, no tenderness to palpation, exam deferred MSK: Full range of active range of motion of all 4 extremities, atraumatic Skin: No rashes lesions noted Neuro: Alert awake oriented x3, moves all 4 extremities spontaneously, cranial nerves intact, able to answer all questions appropriately follows commands appropriately Psych: Cooperative, negative suicidal or homicidal ideations Initial Vital Signs Initial Vital Signs: Vital Signs Pulse Rate 105 H 08/04/24 21:16 Pulse Oximetry 100 08/04/24 21:16 Course Orders Ordered: ED Orders 08/04/24 21:15 Complete Blood Count AUTO DIFF Stat Comprehensive Metabolic Panel Stat Lipase Stat Magnesium Stat NT-proBNP (BNP-Adult 18+) Stat PTT Partial Thromboplastin Martínez Stat Prothrombin Time INR Stat Troponin & CK Cardiac Panel Stat 08/04/24 21:16 XR chest 1V Stat EKG-12 Lead Stat Discontinued Medications Aspirin (Aspirin 81 Mg Chew Tab) 324 mg PO NOW ONE Stop: 08/04/24 21:17 Last Admin: 08/04/24 21:38 Dose: Not Given Documented By: JULIANE Magnesium Sulfate (Magnesium Sulfate) 2 gm in 50 mls @ 150 mls/hr IV NOW ONE Stop: 08/04/24 21:57 Last Infusion: 08/04/24 22:26 Dose: Infused Documented By: JHON Co-signed By: LEONORA Admin: 08/04/24 22:03 Dose: 150 mls/hr Documented By: JULIANE Co-signed By: JHON Vital Signs Vital signs: Vital Signs - 8 hr 08/04/24 21:16 08/04/24 21:17 08/04/24 21:30 Temperature 97.6 F Pulse Rate 105 H 95 H Respiratory Rate 18 Blood Pressure 160/76 H 152/65 H Pulse Oximetry 100 100 Oxygen Delivery Method Room Air 08/04/24 21:30 08/04/24 22:01 08/04/24 22:02 Temperature Pulse Rate 101 H 58 L 59 L Respiratory Rate Blood Pressure Pulse Oximetry 98 98 Oxygen Delivery Method 08/04/24 22:02 08/04/24 22:30 08/04/24 22:31 Temperature Pulse Rate 56 L 55 L Respiratory Rate Blood Pressure 122/70 Pulse Oximetry 96 96 Oxygen Delivery Method Room Air 08/04/24 22:31 08/04/24 23:00 Temperature Pulse Rate 50 L Respiratory Rate 15 Blood Pressure 120/55 L Pulse Oximetry 96 Oxygen Delivery Method Room Air MDM - Arrhythmia/Palpitations Differential Diagnosis Differential diagnosis: Likely other (ACS, pneumonia, electrolyte abnormality, AFib, atrial flutter) Lab Data 08/04/24 21:15 08/04/24 21:15 Labs: Lab Results 08/04/24 Range/Units 21:15 WBC 8.1 (4.5-11.0) X10^3/uL RBC 4.98 (4.0-5.2) X10^6/uL Hgb 15.6 (12.0-16.0) g/dL Hct 46.6 H (36-46) % MCV 93.7 (80-100) fL MCH 31.3 (26-34) PG MCHC 33.4 (30-36) % RDW 13.8 (11.6-14.8) % Plt Count 310 (150-400) X10^3/uL Neut % (Auto) 45.9 L (50-75) % Lymph % (Auto) 39.5 (25-40) % Lanier % (Auto) 10.6 (3-14) % Eos % (Auto) 3.1 (2-4) % Baso % (Auto) 0.9 (0-2) % Neut # (Auto) 3700 (0989-5447) /uL Lymph # (Auto) 3200 (1637-7330) /uL Lanier # (Auto) 900 (0-900) /uL Eos # (Auto) 300 (0-450) /uL Baso # (Auto) 100 (0-100) /uL PT 12.1 (9.4-12.5) SECONDS INR 1.1 (0.9-1.3) APTT 48 H (25.1-36.5) SECONDS Sodium 139 (137-145) mmol/L Potassium 3.6 (3.4-5.1) mmol/L Chloride 100 (98-107) mmol/L Carbon Dioxide 29 (22-32) mmol/L BUN 22 H (7-17) mg/dL Creatinine 1.05 H (0.52-1.04) mg/dL Estimated GFR 53 L (>60) mL/min BUN/Creatinine Ratio 21.0 (6-22) Glucose 139 H (80-110) mg/dL Calcium 10.0 (8.4-10.2) mg/dL Magnesium 2.2 (1.6-2.3) mg/dL Total Bilirubin 0.4 (0.2-1.3) mg/dL AST 45 H (14-36) IU/L ALT 27 (<35) IU/L Alkaline Phosphatase 124 (38-126) U/L Total Creatine Kinase 75 (30-135) U/L Troponin I 0.018 (0.01-0.034) ng/mL NT-Pro-B Natriuret Pep 513 H (<450) pg/mL Total Protein 8.7 H (6.3-8.2) g/dL Albumin 5.0 (3.5-5.0) g/dL Globulin 3.7 (1.7-4.1) g/dL Albumin/Globulin Ratio 1.4 (1.0-2.8) Lipase 202 (23-300) U/L Imaging Data Chest x-ray: Radiologist's Impresson: [address] [address] XRay Report Signed Patient: Sonja Wynn MR#: [id number] : 1940 Acct:[id number] Age/Sex: 84 / F Date of Service: 08/04/24 Loc: ED Accession Number: [id number] Procedure: XR chest 1V Ordering Provider: Omero Mancilla D.O. PROCEDURE: XR CHEST 1V INDICATIONS: chest pain TECHNIQUE: One view of the chest was acquired. COMPARISON: [facility], , XR CHEST 1V, 08/01/2024, 22:20. FINDINGS: Surgical changes and devices: None. Lungs and pleura: Lungs are clear. Elevation of the right hemidiaphragm. No pleural effusions or pneumothorax. Mediastinum: Mediastinal contours appear normal. Heart size is normal. Bones and chest wall: No suspicious bony lesions. Overlying soft tissues appear unremarkable. IMPRESSION: No acute cardiopulmonary abnormality is seen. ECG Data Interpretation: EKG interpreted by ED physician atrial fibrillation at 88 beats per minute QTC [address] changes no STEMI MDM Narrative Medical decision making narrative: 84-year-old female with recent diagnosis of AFib by me on 08/01/2024 presents for palpitations rapid AFib, states that earlier today she was feeling palpitations called the medics noted to be in rapid AFib in the 130s did receive 20 mg IV Cardizem prior to arrival, patient states that she did take her metoprolol like before, patient with improvement of heart rate in the 80s here on arrival. Patient has remained on cardiac monitoring and has remained rate controlled under 100. Patient had lab work imaging unremarkable, no acute cardiopulmonary abnormalities on chest x-ray, EKG nonischemic, troponin negative, electrolytes not abnormal. Patient states does have an appointment with her permit specialist in the next week, patient will be sent home strict return precautions she verbalized understanding of this and agrees to being discharged home with outpatient follow up Discharge Plan Departure Patient Disposition: Home Clinical Impression: A-fib Instructions: DI for Atrial Fibrillation Activity Restrictions/Additional Instructions: Please go to your cardiology appointment as scheduled Please read the discharge instructions sheet carefully and bring all papers to all doctor follow-up visits, as it may contain information that your doctor may want to see. Disease processes change and evolve, if your symptoms worsen or if you develop any new symptoms that are concerning to you please return for evaluation. Your evaluation today does not show any evidence of any life- threatening/serious illnesses requiring admission to the hospital or surgery. Please follow-up with your doctor for re-evaluation in approximately 1 day. Seek immediate medical attention for any worrisome symptoms. *If you do not have a primary care provider please contact the [facility] Resource line at [phone]. They will ask some questions about your medical history and help get you set up with a doctor in the community. Prescriptions: New lorazepam [Ativan] 0.5 mg tablet 0.5 mg PO DAILY PRN (Reason: anxiety) 7 Days Qty: 7 0RF No Action magnesium 30 mg tablet 30 mg PO DAILY [GLUCOSAMINE & CHONDR] Qty: 0 Fish Oil (#FISH OIL) 1,200 mg PO Q DAY Qty: 0 [MELATONIN] 10 mg PO HS Qty: 0 metoprolol succinate 50 mg tablet extended release 24 hr 50 mg PO DAILY Qty: 90 1RF amitriptyline 50 mg tablet 50 mg PO HS MDD 50mg Qty: 90 1RF Rx Instructions: Take one tablet bby mouth at bedtime Lactobacillus acidophilus 100 million cell capsule 300 mg PO DAILY Galzin 25 mg (zinc) capsule 25 mg PO DAILY Rx Instructions: swallow whole; do not chew/break/dissolve/open turmeric 7 g PO cholecalciferol (vitamin D3) 100 mcg (4,000 unit) capsule 100 mcg PO DAILY dicyclomine 10 mg capsule 10 mg PO TID PRN (Reason: GI Issues) Qty: 90 11RF ascorbic acid (vitamin C) 1,000 mg capsule 1 g PO Q6H vinia PO Eliquis 5 mg tablet 5 mg PO BID 30 Days Qty: 60 0RF Referrals: Opal Rios DO [Primary Care Provider] - Stand Alone Forms: Patient Portal/API/Survey
== END 2024-08-05 00:01 | disposition home or self-care (01) ==
PROVIDERS: Emergency Provider Student in an Organized Health Care Education/Training Program; PCP Family Medicine
DX: I48.91 Unspecified atrial fibrillation (principal); Z79.01 Long term (current) use of anticoagulants; R07.9 Chest pain, unspecified
CPT/HCPCS: 71045; 80053; 82550; 83690; 83735; 83880; 84484; 85025; 85610; 85730; 93005; 96365; 99284; J3475

== ENCOUNTER → 2024-10-13 07:08 | Outpatient (CLI) | payer OTHER, SELFPAY ==
[2024-10-13 07:59] LABS: INR 2.4 (0.9-1.3); Prothrombin Time 26.6 SECONDS (9.4-12.5)
== END ==
PROVIDERS: PCP Family Medicine; Referring Provider Family Medicine; Visit Provider Family Medicine
DX: Z51.81 Encounter for therapeutic drug level monitoring (principal); I48.91 Unspecified atrial fibrillation; Z79.01 Long term (current) use of anticoagulants
CPT/HCPCS: 36415; 85610

== ENCOUNTER → 2024-11-16 14:28 | Outpatient (CLI) | payer OTHER, SELFPAY ==
--- NOTE | 2024-11-16 14:30 | DI.ECHO.S_ITS ---
[facility]+ [facility] : : [address] : : [place] : : [id number] : : Phone: [phone] Echocardiogram Report + + :Name: ANGEL HARMON Study Date: 11/16/2024 Height: 65 in : :[facility] ReadingLocation: Weight: 151 lb : : Gender: Female BSA: 1.8 m2 : :: 1940 Age: 84 yrs BP: 173/75 mmHg: :Reason For Study: Atrial fibrillation - paroxysmal : :Ordering Physician: UTE, : :WINSTON Performed By: Alee Wayne : :Referring: WINSTON UNGER : + + Interpretation Summary The patient was in normal sinus rhythm during the exam. The left ventricle is normal in size and wall thickness. The left ventricular ejection fraction is normal. The ejection fraction is estimated to be 65-70%. The right ventricle is normal in size and function. Severe left atrium enlargement There is mild to moderate mitral regurgitation. There is mild to moderate tricuspid regurgitation. The right ventricular systolic pressure is estimated to be at least 38 mmHg based on an estimated right atrial pressure of 3 mm Hg. Procedure: A two-dimensional transthoracic echocardiogram with color flow and Doppler was performed. The study quality was technically adequate. There is no prior echocardiogram noted for this patient. The heart rate ranged between 76-79 bpm during the study. The patient was in normal sinus rhythm during the exam. The patient had occasional PACs during the exam. Left Ventricle: The left ventricle is normal in size and wall thickness. There is no thrombus. The ejection fraction is estimated to be 65-70%. The left ventricular ejection fraction is normal. There are no focal wall motion abnormalities. MV E/A: 1.2 Med Peak E' Hugo: 7.2 cm/sec E/E' med: 13.0. Right Ventricle: The right ventricle is normal in size and function. Atria: The left atrium is severely dilated. Right atrial size is normal. The interatrial septum grossly appears intact with no obvious evidence for an atrial septal defect. Mitral Valve: There is mild mitral annular calcification. There is mild to moderate mitral regurgitation. Aortic Valve: The aortic valve opens well. There is mild aortic valve sclerosis. There is no aortic valve stenosis. No aortic regurgitation is present. Tricuspid Valve: The tricuspid valve is normal in structure and function. There is mild to moderate tricuspid regurgitation. The right ventricular systolic pressure is estimated to be at least 38 mmHg based on an estimated right atrial pressure of 3 mm Hg. Pulmonic Valve: The pulmonic valve is not well visualized. There is trace pulmonic regurgitation. Great Vessels: The aortic root is normal size. The ascending aorta is normal in size. The aortic arch is normal in size. The IVC is of normal diameter and collapses greater than 50% with a sniff. This suggests a low right atrial pressure of 3 mm Hg. Pericardium/ Pleura There is no pericardial effusion. MMode/2D Measurements & Calculations LVIDd: 5.0 cm LVOT diam: 1.9 cm LVIDs: 2.4 cm Ao root diam: 2.9 cm FS: 52.8 % asc Aorta Diam: 3.3 cm IVSd: 0.64 cm Ao Arch Diam (Prox Trans): 2.4 cm LVPWd: 0.68 cm LV wellington. diameter/BSA (cm/m^2): 2.8 LV sys. diameter/BSA (cm/m^2): 1.3 LA A2 area: 28.6 cm2 RA long axis: 5.0 cm LA A4 area: 23.6 cm2 RA area: 17.2 cm2 LA length (vol): 6.1 cm RA vol: 50.3 ml LA vol: 93.9 ml RA : 28.6 ml/m2 LA vol index: 53.5 ml/m2 IVC diam: 1.4 cm RVD1 (basal): 4.0 cm TAPSE: 2.4 cm Doppler Measurements & Calculations Ao V2 max: 146.3 cm/sec LVOT Max Hugo: 88.9 cm/sec Ao V2 mean: 107.5 cm/sec LV V1 max P.2 mmHg Ao max P.6 mmHg LV V1 VTI: 20.8 cm Ao mean P.0 mmHg PAULINA(I,D): 1.7 cm2 Ao V2 VTI: 36.2 cm PAULINA(V,D): 1.8 cm2 sev ratio: 0.57 PAULINA indexed to BSA (cm^2/m^2): 0.96 MV E max hugo: 94.1 cm/sec TR max hugo: 295.2 cm/sec MV A max hugo: 76.9 cm/sec TR max P.9 mmHg MV E/A: 1.2 PA V2 max: 66.3 cm/sec Med Peak E' Hugo: 7.2 cm/sec PA V2 mean: 46.0 cm/sec E/E' med: 13.0 PA mean P.97 mmHg Lat Peak E' Hugo: 11.1 cm/sec PA pr(Accel): -37.5 mmHg E/E' lat: 8.5 E/e' average: 10.7 MV dec time: 0.20 sec MR ERO: 0.14 cm2 Pulm A Revs Hugo: 31.6 cm/sec MR PISA: 2.2 cm2 MR flow rate: 81.2 cm3/sec MR PISA radius: 0.59 cm SV(LVOT): 61.2 ml Reading Physician:03:58 PM
== END ==
PROVIDERS: PCP Family Medicine; Referring Provider Family Medicine; Visit Provider Internal Medicine Cardiovascular Disease
DX: I08.1 Rheumatic disorders of both mitral and tricuspid valves (principal); I48.0 Paroxysmal atrial fibrillation; R00.1 Bradycardia, unspecified
CPT/HCPCS: 93306